=== PATIENT | female | born 1990 ===

== ENCOUNTER 2023-01-23 14:10 | Outpatient (OUT) | payer OTHER, SELFPAY ==
[2023-01-23 14:48] LABS: Basophils Percent Auto 0.4 % (0.2-2.0); Eosinophils Percent Auto 0.1 % (0.9-7.0); Hematocrit 46.2 % (36.0-48.0); Hemoglobin 15.8 g/dL (12.0-16.0); Immature Granulocytes Abs Auto 0.03 10^3/uL (0.00-0.03); Immature Granulocytes Pct Auto 0.3 % (0.0-0.5); Lymphocytes Absolute Auto 1.8 10^3/uL (1.2-3.8); Lymphocytes Percent Auto 18.6 % (20.5-60.0); Mean Corpuscular HGB Conc 34.2 g/dL (29.9-35.2); Mean Corpuscular Hemoglobin 27.2 pg (26.7-34.0); Mean Corpuscular Volume 79.5 fL (81.0-99.0); Mean Platelet Volume 10.2 fL (9.5-13.5); Monocytes Absolute Auto 0.9 10^3/uL (0.3-0.8); Neutrophils Percent Auto 71.6 % (43.0-75.0); Platelet Count 288 10^3/uL (150-450); Red Blood Count 5.81 10^6/uL (4.20-5.40); Red Cell Distribution Width 12.5 % (11.0-15.0); White Blood Count 9.8 10^3/uL (4.0-11.0)
[2023-01-23 15:41] LABS: Estimated Average Glucose 100 mg/dL; Glycohemoglobin A1C 5.1 % (4.5-6.2)
[2023-01-23 16:16] LABS: Alanine Aminotransferase 16 U/L (14-59); Albumin Globulin Ratio 1.1; Albumin Level 4.4 g/dL (3.4-5.0); Alkaline Phosphatase 47 U/L (46-116); Anion Gap 17.2; Aspartate Amino Transferase 12 U/L (15-37); BUN Creatinine Ratio 7.9; Bilirubin Direct 0.2 mg/dL (0.0-0.2); Bilirubin Total 0.7 mg/dL (0.2-1.0); Calcium 9.8 mg/dL (8.5-10.1); Carbon Dioxide 24.4 mmol/L (21.0-32.0); Chloride 100 mmol/L (98-107); Chol HDL Ratio 2.1; Cholesterol 167 mg/dL (<=200); Estimated GFR (African America >60 (>=60); Estimated GFR (Non-African Ame >60 (>=60); Free T3 3.82 pg/mL (2.18-3.98); Globulin 3.9 g/dL; Glucose 108 mg/dL (74-106); HDL Cholesterol 78 mg/dL (40-60); Magnesium 2.2 mg/dL (1.8-2.4); Potassium 3.6 mmol/L (3.5-5.1); Sodium 138 mmol/L (136-145); Thyroid Stimulating Hormone 1.278 uIU/mL (0.358-3.740); Total Protein 8.3 g/dL (6.4-8.2); Triglycerides 49 mg/dL (<=150); VLDL CHOLESTEROL 9.8 mg/dL
[2023-01-23 17:11] LABS: Free T4 1.55 ng/dL (0.76-1.46)
== END 2023-01-23 14:11 | disposition home or self-care (01) ==
LOC: LAB 14:17
PROVIDERS: PCP Family Medicine; Visit Provider Family Medicine
DX: Z00.00 Encounter for general adult medical examination without abnormal findings (principal)
CPT/HCPCS: 36415; 80048; 80061; 80076; 83036; 83735; 84439; 84443; 84481; 85025

== ENCOUNTER 2023-01-30 13:50 | Outpatient (OUT) | payer OTHER, SELFPAY ==
--- NOTE | 2023-01-30 14:30 | CA_ITS ---
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: : 1990 Requested By: AGATHA GARCIA Order Number: [id number] Reading MD: MARY BACON Interpretive Statements Predominant rhythm is sinus with average rate of 74 bpm Tachycardia - max rate of 169 bpm - longest episode of 21min 11sec w/ rates of 118-159 bpm Bradycardia - min rate of 42 bpm, occurring at 2321 - longest episode of 59min 46sec with rates of 46-55 bpm Ventricular ectopy - 49 total (<1%) - 45 PVC NSVT - 1 episode of 4 beat duration Patient triggered events: 34 - associated with symptoms of CP, palpitations, fatigue - associated with rates of 106, 105, 126, 113, 140, 149,139, 109, 124, 103 and 101 bpm Impression: Predominant rhythm is sinus with average rate of 74 bpm Fastest rate of 169 bpm and slowest rate of 42 bpm 45 PVC 1 episode of NSVT w/ duration of 4 beats, asymptomatic No blocks or pauses No Atrial fibrillation Electronically Signed On 02-17-2023 17:05:09 EDT by MARY BACON
--- NOTE | 2023-01-30 14:30 | CA_ITS ---
Patient: CHERRY JACQUES Exam Date: 01/30/2023 : 1990 Gender:F Ordering : DR Kendrick Miller . Admission #: [id number] Family : Order #: [id number] CLICK HERE TO VIEW EXAM ECHOCARDIOGRAM REPORT PROCEDURE: CA ECHO DOPPLER COMPLETE INDICATIONS: NEAR SYNCOPE COMPARISON: None. DESCRIPTION: COMPLETE ECHOCARDIOGRAM Real-time transthoracic echocardiography with 2D, M-mode, spectral and color flow Doppler performed. QUALITY: Technical quality was good. LEFT VENTRICLE: Normal chamber size. Normal left ventricular wall thickness. LV EF: Normal left ventricular ejection fraction, (>55%). DIASTOLIC: Normal diastolic function. ATRIAL SEPTUM: Visually appears intact. LEFT ATRIUM: Normal chamber size. RIGHT ATRIUM: Normal chamber size. RIGHT VENTRICLE: Normal chamber size. Normal right ventricular systolic function. TRICUSPID VALVE: Normal mobility and thickness. No stenosis with trivial regurgitation. MITRAL VALVE: Normal mobility and thickness. No mitral valve prolapse. No evidence of mitral valve stenosis. There is no mitral annular calcification. No mitral regurgitation. AORTIC VALVE: Normal trileaflet appearance. No visible sclerosis. Normal leaflet mobility. No evidence of aortic valve stenosis. No aortic regurgitation. AORTIC ROOT: Normal diameter and appearance. PULMONIC VALVE: Normal thickness and mobility. No stenosis. No regurgitation. PERICARDIUM: No evidence of pericardial effusion. IVC: Collapses with inspirations. IVC is normal in size. PLEURA: CONCLUSION: 1. Normal ventricular function. LVEF is 65%. 2. No significant valvular dysfunction. 3. No pericardial effusion. Adult Echocardiography Procedure Report Left Ventricle LVEDD (3.7 - 5.6 cm): 4.14 cm LVESD (2.2 - 4.0 cm): 2.20 cm LVIVS thickness (0.6 - 1.2 cm): 0.75 cm LVPW thickness (0.5 - 1.0 cm): 0.82 cm e': 0.23 m/s E - e': 3.54 LVOT Max Gradient: 5.84 mm[Hg], 6.18 mm[Hg] LVOT Area (cm2): 1.23 m/s Peak Velocity (LVOT): 1.21 m/s, 1.24 m/s Mean Velocity (LVOT): 0.81 m/s LVOT Diameter 1.87 cm Left Atrium LA Volume Index (2D A2C): 24.32 ml/m2 Left Atrium Systolic Dimension: 3.23 cm Mitral Valve MV E to A Ratio: 1.01 Mitral Valve A-Wave Peak Velocity: 0.82 m/s Mitral Valve E-Wave Peak Velocity: 0.82 m/s Right Ventricle Aorta AO Root Diam: 2.57 cm Aortic Valve AoV Area (Peak Taurus): 2.76 cm2, 2.72 cm2 Peak Velocity(Antegrade Flow): 1.22 m/s Peak Gradient(Antegrade Flow): 5.97 mm[Hg] Tricuspid Valve Pulmonic Valve Mean Gradient: 2.19 mm[Hg] Mean Velocity: 0.69 m/s Peak Velocity: 0.97 m/s, 1.11 m/s Peak Gradient: 4.92 mm[Hg], 3.73 mm[Hg] Right Atrium Right Atrium Systolic Pressure: 23.41 ml, 23.41 ml Dictated by: Savage Aldridge M.D. on 01/31/2023 at 09:41 Approved by: Savage Aldridge M.D. on 01/31/2023 at 09:42
== END 2023-01-30 13:51 | disposition home or self-care (01) ==
LOC: CARD 13:51
PROVIDERS: PCP Family Medicine; Visit Provider Family Medicine
DX: R55 Syncope and collapse (principal)
CPT/HCPCS: 93246; 93306